=== PATIENT | female | born 1950 | race Caucasian/White ===

== ENCOUNTER 2017-10-27 01:16 | Outpatient (CLI) | payer MEDICARE, BC ==
[~2017-10-27 01:16] MED LIST: ACET1TAB12 PO; ASPI-1264 PO; ASPI-611 PO; CARV3.12 PO; CEPH500C5 PO; CLOP75TA35 PO; CYAN100082 PO; DENO60DI IM; DIPH-423 PO; DOCU100C41 PO; ERGO500014 PO; EVOL140S IM; EZET10TA14 PO; IRON18TA PO; LACT1CAP65 PO; METF500T4 PO; NITR0.4T51 SL; OSC500T PO; PANT-47 PO; PREN-52 PO
== END 2017-10-27 23:59 | disposition home or self-care (01) ==
LOC: DIABETIC 01:16
PROVIDERS: ATTEND Physician Assistant
DX: E11.65 Type 2 diabetes mellitus with hyperglycemia (principal); Z95.5 Presence of coronary angioplasty implant and graft; Z85.828 Personal history of other malignant neoplasm of skin; Z90.710 Acquired absence of both cervix and uterus
CPT/HCPCS: G0108

== ENCOUNTER 2018-09-19 14:25 | Day surgery (SDC) | payer MEDICARE, BC ==
[2018-09-19] VITALS (9 sets, daily range): BP systolic 116–148; BP diastolic 69–88
[~2018-09-19] VITALS: Ht 162.6 cm; Wt 52.7 kg
[~2018-09-19 14:25] MED LIST changes: -CEPH500C5 PO; +METF-436 PO; -METF500T4 PO
[2018-09-19] MEDS ORDERED: LIDOcaine 1% (10mg/ml) 2ml vial ONE (14:41)
[2018-09-19] MEDS ORDERED: LORazepam 0.5 MG tablet PO PRN (15:05)
[2018-09-19] MEDS ORDERED: normal saline 1000ml 1,000 ML IV SCH (15:05)
[2018-09-19] MEDS ORDERED: diphenhydrAMINE 25mg capsule PO PRN (15:05)
[2018-09-19] MEDS ORDERED: ERGO500041 PO (15:14)
[2018-09-19] MEDS ORDERED: RANO500T3 PO (15:14)
[2018-09-19] MEDS ORDERED: CALC-331 PO (15:14)
[2018-09-19] MEDS ORDERED: CARV3.12 PO (15:14)
[2018-09-19] MEDS ORDERED: PNV1TABL75 PO (15:14)
[2018-09-19] MEDS ORDERED: FLUO15CR2 TP (15:14)
[2018-09-19] MEDS ORDERED: LIDOcaine 1% (10mg/ml)w/preservative injection 20ml MDV ONE (16:56)
[2018-09-19] MEDS ORDERED: iohexol 350MG/ML 100ml bottle IV ONE (16:56)
[2018-09-19] MEDS ORDERED: midazolam 2 mg/2 ml injection ONE (16:56)
[2018-09-19] MEDS ORDERED: fentaNYL/PF 50MCG/1 ML 2ML syringe ONE (16:56)
[2018-09-19] MEDS ORDERED: OXAZEpam 15mg capsule PO PRN (17:55)
[2018-09-19] MEDS ORDERED: proCHLORperazine 10 MG/2 ml inj IV PRN (17:55)
[2018-09-19] MEDS ORDERED: HYDROcodone/acetaminophen 5mg/325mg tablet PO PRN (17:55)
[2018-09-19] MEDS ORDERED: acetaminophen 325mg tablet PO PRN (17:55)
[2018-09-19] MEDS ORDERED: ondansetron/PF 4mg/2ml inj IV PRN (17:55)
[2018-09-19] MEDS ORDERED: HYDROcodone/acetaminophen 10/325mg tab PO PRN (17:55)
== END 2018-09-19 19:32 | disposition home or self-care (01) ==
LOC: SSTAY O 14:25
PROVIDERS: ATTEND Internal Medicine Interventional Cardiology
DX: I25.118 Atherosclerotic heart disease of native coronary artery with other forms of angina pectoris (principal); I10 Essential (primary) hypertension; E78.5 Hyperlipidemia, unspecified; I25.2 Old myocardial infarction; E11.9 Type 2 diabetes mellitus without complications; I47.2 Ventricular tachycardia; I65.29 Occlusion and stenosis of unspecified carotid artery; I49.8 Other specified cardiac arrhythmias; M19.90 Unspecified osteoarthritis, unspecified site; M06.9 Rheumatoid arthritis, unspecified; M81.0 Age-related osteoporosis without current pathological fracture; F10.10 Alcohol abuse, uncomplicated; F41.8 Other specified anxiety disorders; Z86.74 Personal history of sudden cardiac arrest; Z91.048 Other nonmedicinal substance allergy status; Z95.5 Presence of coronary angioplasty implant and graft; Z88.6 Allergy status to analgesic agent; Z91.011 Allergy to milk products; Z95.0 Presence of cardiac pacemaker; Z98.84 Bariatric surgery status; Z91.040 Latex allergy status; Z79.84 Long term (current) use of oral hypoglycemic drugs; Z79.82 Long term (current) use of aspirin; Z79.891 Long term (current) use of opiate analgesic; Z90.49 Acquired absence of other specified parts of digestive tract; Z87.442 Personal history of urinary calculi; Z98.41 Cataract extraction status, right eye; Z98.42 Cataract extraction status, left eye; Z90.710 Acquired absence of both cervix and uterus; Z85.828 Personal history of other malignant neoplasm of skin; Z88.8 Allergy status to other drugs, medicaments and biological substances; Z79.899 Other long term (current) drug therapy; Z98.890 Other specified postprocedural states; Z82.49 Family history of ischemic heart disease and other diseases of the circulatory system; Z82.0 Family history of epilepsy and other diseases of the nervous system; Z83.3 Family history of diabetes mellitus; Z80.9 Family history of malignant neoplasm, unspecified
CPT/HCPCS: 82948; 93005; 93458; 99152; A6257; J1644; J2001; J2250; J3010; J3490; J7030; Q0163; Q9967; A4620; C1769

== ENCOUNTER 2020-05-02 06:40 | Day surgery (SDC) | payer MEDICARE, BC ==
[2020-04-29 16:21] LABS: BASOPHILS % (AUTO) 0.7 % (0-1); EOSINOPHILS # (AUTO) 0.2 X10'3 (0-0.9); EOSINOPHILS % (AUTO) 2.7 % (0-6); HEMATOCRIT 39.3 % (35.0-45.0); HEMOGLOBIN 12.8 g/dl (12.0-16.0); LYMPHOCYTES % (AUTO) 33.8 % (21-51); MEAN CORPUSCULAR HEMOGLOBIN 29.4 PG (27.0-31.0); MEAN CORPUSCULAR HGB CONC 32.6 g/dL (33.0-36.5); MEAN CORPUSCULAR VOLUME 90.3 FL (78-98); MEAN PLATELET VOLUME 9.8 FL (7.4-10.4); MONOCYTES # (AUTO) 0.5 X10'3 (0-0.9); NEUTROPHILS # (AUTO) 3.1 X10'3 (1.8-7.7); NEUTROPHILS % (AUTO) 53.8 % (42-75); PLATELET COUNT 196 X10'3 (140-440); RED BLOOD COUNT 4.35 X10'6 (4.20-5.60); WHITE BLOOD COUNT 5.8 X10'3 (4.5-11.0)
[2020-04-29 16:30] LABS: ALBUMIN 3.8 G/DL (3.4-5.0); ANION GAP 4 (8-16); BLOOD UREA NITROGEN 14 MG/DL (7-18); BUN/CREATININE RATIO 14.1 (6.6-38.0); CHLORIDE 106 MMOL/L (99-107); CREATININE 0.99 MG/DL (0.40-0.90); GLUCOSE 130 MG/DL (70-104); POTASSIUM 4.3 MMOL/L (3.5-5.1); SODIUM 141 MMOL/L (135-145); TOTAL CARBON DIOXIDE 31.2 MMOL/L (24-32); eGFR 55 ML/MIN
[2020-04-29 16:32] LABS: PARTIAL THROMBOPLASTIN TIME 27 SECONDS (22-32)
[2020-05-02] VITALS (9 sets, daily range): BP systolic 137–161; BP diastolic 65–96
[~2020-05-02] VITALS: Ht 162.6 cm; Wt 53.4 kg
[~2020-05-02 06:40] MED LIST changes: -ASPI-1264 PO; +CALC-331 PO; -CYAN100082 PO; -DENO60DI IM; -DOCU100C41 PO; -ERGO500014 PO; +ERGO500041 PO; -EVOL140S IM; -EZET10TA14 PO; +FLUO15CR2 TP; -IRON18TA PO; -LACT1CAP65 PO; -OSC500T PO; -PANT-47 PO; +PNV1TABL75 PO; -PREN-52 PO; +RANO500T3 PO
[2020-05-02] MEDS ORDERED: EVOL140P3 SUBCUT (07:15)
[2020-05-02] MEDS ORDERED: FERR236T3 PO (07:15)
[2020-05-02] MEDS ORDERED: LORazepam 0.5 MG tablet PO PRN (07:35)
[2020-05-02] MEDS ORDERED: diphenhydrAMINE 25mg capsule PO PRN (07:35)
[2020-05-02] MEDS ORDERED: normal saline 1000ml 1,000 ML IV SCH ×2 (07:45→10:35)
[2020-05-02] MEDS ORDERED: midazolam 2 mg/2 ml injection ONE (09:19)
[2020-05-02] MEDS ORDERED: LIDOcaine 1% (10mg/ml)w/preservative injection 20ml MDV ONE (09:19)
[2020-05-02] MEDS ORDERED: iohexol 350MG/ML 100ml bottle IV ONE (09:19)
[2020-05-02] MEDS ORDERED: fentaNYL/PF 50MCG/1 ML 2ML syringe ONE (09:19)
[2020-05-02] MEDS ORDERED: heparin 1,000 UNITS/NS 500ml 500 ML ONE ×2 (09:20)
[2020-05-02] MEDS ORDERED: nitroGLYCERIN 0.4mg SUBLingual tab SL PRN (10:35)
[2020-05-02] MEDS ORDERED: OXAZEpam 15mg capsule PO PRN (10:35)
[2020-05-02] MEDS ORDERED: acetaminophen 325mg tablet PO PRN (10:35)
[2020-05-02] MEDS ORDERED: proCHLORperazine 10 MG/2 ml inj IV PRN (10:35)
[2020-05-02] MEDS ORDERED: ondansetron/PF 4mg/2ml inj IV PRN (10:35)
== END 2020-05-02 14:00 | disposition home or self-care (01) ==
LOC: SSTAY O 06:40
PROVIDERS: ATTEND Internal Medicine Interventional Cardiology
DX: R07.9 Chest pain, unspecified (principal); T82.855A Stenosis of coronary artery stent, initial encounter; I25.118 Atherosclerotic heart disease of native coronary artery with other forms of angina pectoris; E11.9 Type 2 diabetes mellitus without complications; I10 Essential (primary) hypertension; I25.2 Old myocardial infarction; I35.0 Nonrheumatic aortic (valve) stenosis; E78.49 Other hyperlipidemia; Z95.5 Presence of coronary angioplasty implant and graft; Z98.84 Bariatric surgery status; Z88.8 Allergy status to other drugs, medicaments and biological substances; Z79.82 Long term (current) use of aspirin; Z79.84 Long term (current) use of oral hypoglycemic drugs; Z79.899 Other long term (current) drug therapy; Z95.0 Presence of cardiac pacemaker; Y83.8 Other surgical procedures as the cause of abnormal reaction of the patient, or of later complication, without mention of misadventure at the time of the procedure; Y92.89 Other specified places as the place of occurrence of the external cause
CPT/HCPCS: 36415; 80048; 82948; 85025; 85610; 85730; 93005; 93458; 99152; C1769; J1644; J2001; J2250; J3010; J7030; Q0163; Q9967; A4620

== ENCOUNTER 2020-09-17 09:47 | Emergency (ER) | payer MEDICARE, BC ==
[~2020-09-17] VITALS: Ht 162.6 cm; Wt 54.4 kg
[~2020-09-17 09:47] MED LIST changes: +EVOL140P3 SUBCUT; +FERR236T3 PO
[2020-09-17] MEDS ORDERED: aspirin 81mg tab.chew PO ONE (10:05)
[2020-09-17 10:30] LABS: BASOPHILS # (AUTO) 0.1 X10'3 (0-0.2); EOSINOPHILS # (AUTO) 0.2 X10'3 (0-0.9); EOSINOPHILS % (AUTO) 3.9 % (0-6); HEMATOCRIT 40.2 % (35.0-45.0); HEMOGLOBIN 13.4 g/dl (12.0-16.0); LYMPHOCYTES # (AUTO) 1.7 X10'3 (1.1-4.8); LYMPHOCYTES % (AUTO) 27.4 % (21-51); MEAN CORPUSCULAR HGB CONC 33.5 g/dL (33.0-36.5); MEAN CORPUSCULAR VOLUME 92.5 FL (78-98); MEAN PLATELET VOLUME 9.3 FL (7.4-10.4); MONOCYTES # (AUTO) 0.5 X10'3 (0-0.9); MONOCYTES % (AUTO) 8.6 % (2-12); NEUTROPHILS # (AUTO) 3.6 X10'3 (1.8-7.7); NEUTROPHILS % (AUTO) 59.1 % (42-75); PLATELET COUNT 226 X10'3 (140-440); RED BLOOD COUNT 4.34 X10'6 (4.20-5.60); RED CELL DISTRIBUTION WIDTH 13.2 % (11.5-14.5); WHITE BLOOD COUNT 6.1 X10'3 (4.5-11.0)
[2020-09-17] MEDS: nitroGLYCERIN 0.4mg SUBLingual tab SL PRN ×2 (10:38→11:11)
--- NOTE | 2020-09-17 10:43 | NUR ---
chest pain 4/10.given nitro x1.
[2020-09-17 10:49] LABS: ALANINE AMINOTRANSFERASE 37 U/L (12-78); ALBUMIN 3.9 G/DL (3.4-5.0); ALBUMIN/GLOBULIN RATIO 1.1 (1.1-1.5); ALKALINE PHOSPHATASE 64 IU/L (46-116); ANION GAP 7 (8-16); ASPARTATE AMINO TRANSFERASE 43 U/L (10-37); BILIRUBIN,TOTAL 0.5 MG/DL (0.1-1.0); BLOOD UREA NITROGEN 11 MG/DL (7-18); BUN/CREATININE RATIO 12.5 (6.6-38.0); CALCIUM 9.9 MG/DL (8.5-10.1); CHLORIDE 106 MMOL/L (99-107); CREATININE 0.88 MG/DL (0.40-0.90); GLUCOSE 92 MG/DL (70-104); POTASSIUM 3.6 MMOL/L (3.5-5.1); SODIUM 142 MMOL/L (135-145); TOTAL CARBON DIOXIDE 28.6 MMOL/L (24-32); TOTAL PROTEIN 7.6 G/DL (6.4-8.2); eGFR 63 ML/MIN
[2020-09-17] MEDS ORDERED: ISOS30TA9 PO (12:56)
[2020-09-17 13:16] VITALS: BP 139/71
== END 2020-09-17 13:18 | disposition home or self-care (01) ==
LOC: ER 09:47
DX: I20.9 Angina pectoris, unspecified (principal); I25.2 Old myocardial infarction; E11.9 Type 2 diabetes mellitus without complications; Z90.710 Acquired absence of both cervix and uterus; Z98.890 Other specified postprocedural states; Z91.040 Latex allergy status; Z88.6 Allergy status to analgesic agent; Z88.8 Allergy status to other drugs, medicaments and biological substances; Z79.899 Other long term (current) drug therapy; Z79.82 Long term (current) use of aspirin
CPT/HCPCS: 36415; 71045; 80053; 83880; 84484; 85025; 93005; 99285